=== PATIENT | male | born 1955 | race Caucasian/White ===

== ENCOUNTER → 2019-05-07 14:00 | Outpatient (CLI) | payer OTHER, SELFPAY ==
--- NOTE | 2019-05-07 | DI.MRI.S_ITS ---
PROCEDURE: MR LUMBAR SPINE WO CON INDICATIONS: CHRONIC LOW BACK PAIN TECHNIQUE: Noncontrast sagittal T1 spin echo and T2 fast echo, sagittal STIR, axial T1 and T2 fast spin echo through the lumbar spine. In cases with scoliosis, additional coronal T2 fast spin echo may be performed. COMPARISON: None. FINDINGS: Image quality: Excellent. Alignment and Curvature: There is normal bony alignment. There is approximately 20? of convex left lumbar spine scoliosis. Bone Marrow: Reactive endplate change is noted adjacent to the L3-L4, L4-L5 and L5-S1 discs. No acute vertebral body compression fractures. Spinal Cord: Conus medullaris terminates at the L1-2 disc level. Visualized cord demonstrates normal signal and size. Paraspinous Soft Tissues: No paravertebral masses. L1-L2: Normal appearance. L2-L3: Loss of disc signal. Minimal, diffuse disc bulge. No central stenosis. No neural foraminal narrowing. No neural impingement. L3-L4: Loss of disc signal and height. Moderate, diffuse disc bulge. Mild bilateral facet hypertrophy. Mild to moderate narrowing of the central canal. Small right central disc protrusion. Right central disc protrusion abuts and displaces the traversing right L4 nerve root. Moderate to severe right and mild left neural foraminal narrowing with slight compression of the exiting right L3 nerve root. L4-L5: Loss of disc signal and height. Moderate, diffuse disc bulge. Mild bilateral facet hypertrophy. Mild to moderate narrowing of the central canal. Moderate to severe right and moderate left neural foraminal narrowing with slight compression of the exiting right L4 nerve root. L5-S1: Loss of disc signal and height. Mild, diffuse disc bulge. Mild bilateral facet hypertrophy. No central stenosis. Moderate right and [id number] left neural foraminal narrowing with slight compression of the exiting left L5 nerve root. IMPRESSION: 1. Convex left scoliosis. 2. Multilevel degenerative disc disease 3. Multilevel facet arthropathy. 4. Mild to moderate L3-L4 and L4-L5 central canal narrowing. 5. Moderate to severe right and mild left L3-L4 neural foraminal narrowing. Moderate to severe right and moderate left L4-L5 neural foraminal narrowing. Moderate right and moderate to severe left L5-S1 neural foraminal narrowing. 6. Small right central L3-L4 disc protrusion abuts and slightly displaces the traversing right L4 nerve root. Please correlate with clinical data. 7. Compression of the exiting right L3 nerve root, the exiting right L4 nerve root and the exiting left L5 nerve root secondary to neural foraminal narrowing. Please correlate with clinical data. Dictated by: Starla Gomes MD, PhD on 05/07/2019 at 15:44 Approved by: Starla Gomes MD, PhD on 05/07/2019 at 15:50
== END ==
PROVIDERS: Visit Provider Physician Assistant
DX: M47.816 Spondylosis without myelopathy or radiculopathy, lumbar region (principal); M47.817 Spondylosis without myelopathy or radiculopathy, lumbosacral region; M48.061 Spinal stenosis, lumbar region without neurogenic claudication; M48.07 Spinal stenosis, lumbosacral region; M51.26 Other intervertebral disc displacement, lumbar region; M41.86 Other forms of scoliosis, lumbar region; G89.29 Other chronic pain
CPT/HCPCS: 72148